=== PATIENT | female | born 1945 | race American Indian/Alaskan Native ===

== ENCOUNTER 2017-09-07 11:27 | Emergency (ER) | payer MEDICARE ==
[2017-09-07] MEDS ORDERED: ASPIRIN PO ONE (11:52)
[2017-09-07] MEDS ORDERED: PEPCID PO ONE (11:53)
--- NOTE | 2017-09-07 12:07 | Emergency Department Report ---
ED Chest Pain HPI - General Chief Complaint: Chest Pain Stated Complaint: CHEST PAIN Time Seen by Provider: 09/07/17 11:32 Source: patient, family, EMS Mode of arrival: Stretcher Limitations: No Limitations - History of Present Illness Initial Comments: 72-year-old female with history of congestive heart failure dyslipidemia presents with chest pain. While driving from a restaurant, patient had the sudden onset of stabbing central chest pain. No radiation. Moderate in severity. The symptoms lasted for 10 minutes. She felt that she ate her meal too quickly. She just wanted some water to help the pain. However her daughter felt that the chest pain was much more serious. Daughter pulled a car over to the side of thel road and called EMS. Patient does not have a history of coronary artery disease. She does have a history of congestive heart failure. She does have AICD. She did have one instance of atrial fibrillation. No history of cardiac invasive intervention such as PTCA. She does have a history of GERD. She is noncompliant with Zantac/ranitidine. She is currently symptom-free. She denies associated shortness of breath or palpitations. She denies leg pain. She denies recent travel. For cynthia she had waffles, sausage and Coca-Cola. She drinks Coca-Cola daily. MD Complaint: chest pain - Related Data Allergies Allergy/AdvReac Type Severity Reaction Status Date / Time No Known Allergies Allergy Unverified 09/07/17 11:44 Heart Score - HEART Score History: Slightly suspicious EKG: Normal Age: > 65 Risk factors: 1-2 risk factors Troponin: < normal limit HEART Score: 3 ED Review of Systems ROS: Stated complaint: CHEST PAIN Other details as noted in HPI Comment: All other systems reviewed and negative Constitutional: denies: chills, fever Eyes: denies: eye pain, vision change Respiratory: denies: cough, shortness of breath, wheezing Cardiovascular: denies: chest pain Endocrine: no symptoms reported Gastrointestinal: denies: abdominal pain, nausea, diarrhea Genitourinary: denies: discharge Skin: denies: rash, lesions Neurological: denies: headache, weakness, paresthesias Psychiatric: denies: anxiety, depression ED Past Medical Hx - Past Medical History Hx Congestive Heart Failure: Yes Additional medical history: pacemaker,kidney problems?,neuropathy,thyroid surgery - Surgical History Hx Pacemaker: Yes Additional Surgical History: thyroid - Social History Smoking Status: Unknown if ever smoked Substance Use Type: None ED Physical Exam - General Limitations: Other General appearance: alert, in no apparent distress - Head Head exam: Present: atraumatic, normocephalic - Eye Eye exam: Present: normal appearance - ENT ENT exam: Present: mucous membranes moist - Neck Neck exam: Present: normal inspection - Respiratory Respiratory exam: Present: normal lung sounds bilaterally. Absent: respiratory distress, wheezes, rales, rhonchi - Cardiovascular Cardiovascular Exam: Present: regular rate, normal rhythm, normal heart sounds. Absent: bradycardia, tachycardia, systolic murmur, diastolic murmur, rubs, gallop - GI/Abdominal GI/Abdominal exam: Present: soft, normal bowel sounds. Absent: distended, tenderness, guarding, rebound - Extremities Exam Extremities exam: Present: normal inspection - Back Exam Back exam: Present: normal inspection - Neurological Exam Neurological exam: Present: alert, oriented X3 - Psychiatric Psychiatric exam: Present: normal affect, normal mood - Skin Skin exam: Present: warm, dry, intact, normal color. Absent: rash ED Course Vital Signs 09/07/17 09/07/17 09/07/17 11:30 11:38 11:59 Temperature 98.3 F Pulse Rate 75 65 Respiratory 16 18 18 Rate Blood Pressure 132/75 O2 Sat by Pulse 100 100 Oximetry 09/07/17 09/07/17 12:01 13:00 Temperature Pulse Rate 63 51 L Respiratory 17 14 Rate Blood Pressure 132/75 113/60 O2 Sat by Pulse 100 100 Oximetry ED Medical Decision Making - Lab Data Result diagrams: 09/07/17 12:04 09/07/17 12:04 Laboratory Results - last 24 hr 09/07/17 09/07/17 09/07/17 12:04 12:04 13:25 WBC 4.3 L RBC 3.49 L Hgb 10.0 L Hct 31.7 MCV 91 MCH 29 MCHC 32 RDW 15.1 Plt Count 90 L Lymph % (Auto) 24.3 [place] % (Auto) 12.9 H Eos % (Auto) 5.4 H Baso % (Auto) 0.7 Lymph # 1.0 L [place] # 0.6 Eos # 0.2 Baso # 0.0 Seg Neutrophils % 56.7 Seg Neutrophils # 2.4 Sodium 140 Potassium 4.6 Chloride 108.5 H Carbon Dioxide 19 L Anion Gap 17 BUN 28 H Creatinine 2.2 H Estimated GFR 22 BUN/Creatinine Ratio 13 Glucose 94 Calcium 9.1 Total Bilirubin 0.70 AST 19 ALT 12 Alkaline Phosphatase 72 Troponin T 0.028 0.025 Total Protein 6.5 Albumin 3.4 L Albumin/Globulin Ratio 1.1 Vital Signs - 24 hr 09/07/17 09/07/17 09/07/17 11:30 11:38 11:59 Temperature 98.3 F Pulse Rate 75 65 Respiratory 16 18 18 Rate Blood Pressure 132/75 O2 Sat by Pulse 100 100 Oximetry 09/07/17 09/07/17 12:01 13:00 Temperature Pulse Rate 63 51 L Respiratory 17 14 Rate Blood Pressure 132/75 113/60 O2 Sat by Pulse 100 100 Oximetry - EKG Data -: EKG Interpreted by Nh - EKG Data 09/07/17 12:08 EKG obtained at 1137 Ventricular pacing rate of 70 bpm abnormal axis widened paced QRS normal QT interval with no ST elevation no signs of ischemia - Medical Decision Making Mrs. Menchaca is low risk for ACS Heart Score 3 with two sets of downward trending troponin levels. She has been chest pain free during entire ED encounter. I strongly suspect GERD as the cause of pain. I recommended ranitidine and decreased soda intake. Dc'd home with referral to an outpatient physician. Ms. Menchaca does not have a PCP. I have informed patient of thrombocytopenia. She has had frequent bruising. Critical care attestation.: If time is entered above; I have spent that time in minutes in the direct care of this critically ill patient, excluding procedure time. ED Disposition Clinical Impression: GERD (gastroesophageal reflux disease), Chest pain, Thrombocytopenia Disposition: - TO HOME OR SELFCARE Is pt being admited?: No Does the pt Need Aspirin: No Condition: Stable Instructions: Chest Pain (ED), Gastroesophageal Reflux Disease (ED), Thrombocytopenia (ED) Additional Instructions: Your platelet count today is 90,000. Normal count is 140,000. Please have your new primary care doctor follow this lab value. Referrals: KINGSLEY RUIZ MD [Staff Physician] - 3-5 Days Time of Disposition: 14:05
[2017-09-07 12:41] LABS: Basophils % (Auto) 0.7 % (0.0-1.8); Eosinophils # (Auto) 0.2 K/mm3 (0.0-0.4); Eosinophils % (Auto) 5.4 % (0.0-4.3); Hematocrit 31.7 % (30.3-42.9); Lymphocytes % (Auto) 24.3 % (13.4-35.0); Mean Corpuscular HGB Conc 32 % (30-34); Mean Corpuscular Hemoglobin 29 pg (28-32); Mean Corpuscular Volume 91 fl (79-97); Monocytes # (Auto) 0.6 K/mm3 (0.0-0.8); Monocytes % (Auto) 12.9 % (0.0-7.3); Red Blood Count 3.49 M/mm3 (3.65-5.03); Red Cell Distribution Width 15.1 % (13.2-15.2)
[2017-09-07 12:43] LABS: Albumin 3.4 g/dL (3.9-5); Calcium 9.1 mg/dL (8.4-10.2)
--- NOTE | 2017-09-07 13:02 | XRay Report ---
AP CHEST : 09/07/17 11:27:00 CLINICAL: Chest pain. COMPARISON:None FINDINGS: Large heart with pacer leads in the heart. Mild central vascular congestion. The lungs are normally expanded and clear. The bones and soft tissues are unremarkable. IMPRESSION: Cardiomegaly but no CHF.
[2017-09-07 13:21] LABS: Platelet Count 90 K/mm3 (140-440)
[2017-09-07 14:03] VITALS: BP 113/60
== END 2017-09-07 14:17 | disposition home or self-care (01) ==
LOC: ED 11:27
DX: R07.89 Other chest pain (principal); D69.6 Thrombocytopenia, unspecified; K21.9 Gastro-esophageal reflux disease without esophagitis; I50.9 Heart failure, unspecified; E78.5 Hyperlipidemia, unspecified; Z95.0 Presence of cardiac pacemaker
CPT/HCPCS: 36415; 71045; 80053; 84484; 85025; 93005; 93010